=== PATIENT | male | born 1955 | race Caucasian/White ===

== ENCOUNTER 2019-01-01 12:55 | Emergency (ER) | payer OTHER ==
--- NOTE | 2019-01-01 13:59 | EDPHY ---
H & P Stated Complaint: chest pain, epigrastric pain Time Seen by Provider: 01/01/19 13:25 HPI/ROS: CHIEF COMPLAINT: Chest pain HISTORY OF PRESENT ILLNESS: 63-year-old male with hyperlipidemia presents with chest pain. He was doing his routine morning exercises, including stretching his anterior chest, when he developed a sharp and stabbing left-sided chest discomfort. The pain was mild, 3/10 and resolved within 5 min. No associated symptoms. Similar episode of chest pain doing the same exercise previously. After eating a sandwich at a restaurant this afternoon, he was sitting in the car and developed epigastric pain which radiated to his chest. The pain was moderate and not similar to the pain earlier today. The pain lasted approximately 15 min and then completely resolved. No other associated symptoms with this discomfort. Exercises regularly without chest discomfort. CT calcium score 3 years ago very low (pt thinks 2-3), similar to CT calcium score 10 years ago, which was 2. Cardiac risk factors positive for hyperlipidemia. Nonsmoker; no family history ; no hypertension, diabetes. REVIEW OF SYSTEMS: complete 10 point ROS reviewed and is negative except for the noted elements in the HPI - Personal History Current Tetanus/Diphtheria Vaccine: Unsure Current Tetanus Diphtheria and Acellular Pertussis (TDAP): Unsure - Medical/Surgical History Hx Asthma: No Hx Chronic Respiratory Disease: No Hx Diabetes: No Hx Cardiac Disease: No Hx Renal Disease: No Hx Cirrhosis: No Hx Alcoholism: No Hx HIV/AIDS: No Hx Splenectomy or Spleen Trauma: No - Family History Significant Family History: Heart disease (father in 60's) - Social History Smoking Status: Never smoked Alcohol Use: Sober Drug Use: None - Physical Exam Exam: General Appearance: Alert, pleasant Eyes: Pupils equal and round, no conjunctival pallor ENT, Mouth: Mucous membranes moist Neck: Normal inspection Respiratory: Lungs are clear to auscultation Cardiovascular: Regular rate and rhythm, no murmur Gastrointestinal: Abdomen is soft and nontender Neurological: A&O, nonfocal, normal gait Skin: Warm and dry, no rash Extremities: Nontender, no pedal edema Psychiatric: Mood and affect normal Constitutional: Initial Vital Signs Temperature (C) 36.7 C 01/01/19 13:01 Heart Rate 91 01/01/19 13:01 Respiratory Rate 16 01/01/19 13:01 Blood Pressure 163/83 H 01/01/19 13:01 O2 Sat (%) 98 01/01/19 13:01 O2 Delivery Mode Room Air Allergies/Adverse Reactions: No Known Allergies Allergy (Unverified 01/01/19 13:00) Home Medications: Medication Instructions Recorded FENOFIBRATE 01/01/19 Medical Decision Making - Diagnostics EKG Interpretation: EKG interpreted by me reveals normal sinus rhythm, rate 89, no ST or T segment changes. Interpretation: Normal EKG. Imaging Results: Imaging Impressions Chest X-Ray 01/01/19 13:18 Impression: Clear lungs. No acute process. Chest x-ray independently reviewed by me reveals no acute disease. Imaging: Discussed imaging studies w/ reimbursement liaison Radiologist ED Course/Re-evaluation: This patient presents after 2 episodes of pain today. The 1st pain during stretching, is consistent with musculoskeletal etiology. The patient has had similar discomfort in the past with the same stretching exercise. The 2nd episode of pain was mainly in the epigastrium and radiated to the chest. This episode occurred after eating and is most suggestive of a GI etiology of pain. Stat EKG reveals no evidence of ischemia or dysrhythmia and troponin is normal. Heart score is 2. Shared discussion making with the patient. Risks and benefits from admission versus outpatient evaluation discussed. Patient clearly understands and would like to pursue outpatient evaluation. Plan to discharge the patient home with outpatient cardiology follow-up. Warning signs discussed Differential Diagnosis: Differential diagnosis includes though it is not limited to pneumonia, pneumothorax, pulmonary embolism, aortic dissection, pericarditis, acute coronary syndrome. - Data Points Laboratory Results: Laboratory Results 01/01/19 13:27 01/01/19 01/01/19 01/01/19 13:31 13:27 13:27 WBC RBC Hgb Hct MCV MCH MCHC RDW Plt Count MPV Neut % (Auto) Lymph % (Auto) [place] % (Auto) Eos % (Auto) Baso % (Auto) Nucleat RBC Rel Count Absolute Neuts (auto) Absolute Lymphs (auto) Absolute Monos (auto) Absolute Eos (auto) Absolute Basos (auto) Absolute Nucleated RBC Immature Gran % Immature Gran # D-Dimer < 0.27 ug/mLFEU ug/mLFEU (0.00-0.50) Sodium 139 mEq/L mEq/L (135-145) Potassium 3.9 mEq/L mEq/L (3.5-5.2) Chloride 102 mEq/L mEq/L (97-110) Carbon Dioxide 25 mEq/l mEq/l (22-31) Anion Gap 12 mEq/L mEq/L (6-14) BUN 21 mg/dL mg/dL (7-23) Creatinine 1.0 mg/dL mg/dL (0.7-1.3) Estimated GFR > 60 Glucose 121 mg/dL H mg/dL (70-100) Calcium 9.4 mg/dL mg/dL (8.5-10.4) POC Troponin I 0.00 ng/mL ng/mL (0.00-0.08) NT-Pro-B Natriuret Pep < 11 pg/mL pg/mL (0-125) 01/01/19 13:27 WBC Pending RBC Pending Hgb Pending Hct Pending MCV Pending MCH Pending MCHC Pending RDW Pending Plt Count Pending MPV Pending Neut % (Auto) Pending Lymph % (Auto) Pending [place] % (Auto) Pending Eos % (Auto) Pending Baso % (Auto) Pending Nucleat RBC Rel Count Pending Absolute Neuts (auto) Pending Absolute Lymphs (auto) Pending Absolute Monos (auto) Pending Absolute Eos (auto) Pending Absolute Basos (auto) Pending Absolute Nucleated RBC Pending Immature Gran % Pending Immature Gran # Pending D-Dimer Sodium Potassium Chloride Carbon Dioxide Anion Gap BUN Creatinine Estimated GFR Glucose Calcium POC Troponin I NT-Pro-B Natriuret Pep Point of Care Test Results: Chemistry 01/01/19 13:31 POC Troponin I 0.00 ng/mL ng/mL (0.00-0.08) Departure - Departure Disposition: Home, Routine, Self-Care Clinical Impression: Epigastric pain Condition: Good Instructions: Chest Pain (ED) Additional Instructions: 1. Based upon the testing done in the Emergency Department today we see no evidence of a heart attack. 2. We are unable to fully exclude coronary artery disease based upon the testing available in the Emergency Department. 3. For this reason, we would like you to be seen by cardiology for consideration of additional testing within the next 3 days. 4. Please contact the product marketing intern you have been referred to schedule this appointment as soon as possible. Their offices are typically open from 8:30am- 5pm M-F. 5. Please return to the Emergency Department immediately for any recurrent chest pain, difficulty breathing or other concerns. Referrals: Dharmesh Parker MD [Medical Doctor] - As per Instructions
[2019-01-01 14:44] VITALS: BP 134/84
--- NOTE | 2019-01-01 14:51 | CPEKG ---
Test Reason : OPEN Blood Pressure : / mmHG Vent. Rate : 089 BPM Atrial Rate : 089 BPM P-R Int : 164 ms QRS Dur : 082 ms QT Int : 366 ms P-R-T Axes : 004 -07 023 degrees QTc Int : 446 ms Sinus rhythm Confirmed by Jacklyn Valentine ([id number]) on 01/01/2019 2:51:32 PM Referred By: Jacklyn Valentine Confirmed By:Jacklyn Valentine
[2019-01-01 15:32] LABS: PLATELET COUNT 252 10^3/uL (150-400)
== END 2019-01-01 14:43 | disposition home or self-care (01) ==
DX: R10.13 Epigastric pain (principal); R07.89 Other chest pain; E78.5 Hyperlipidemia, unspecified
CPT/HCPCS: 84484-ER